=== PATIENT | male | born 1980 | race Caucasian/White ===

== ENCOUNTER 2024-02-21 19:18 | Emergency (ER) | payer OTHER, MEDICAID, SELFPAY ==
[2024-02-21 19:37] VITALS: BP 147/86; PULSE 67; RESP 17; TEMP 36.6; O2SAT 98; BMI 28.6
== END 2024-02-21 22:20 | disposition left against medical advice (07) ==
PROVIDERS: Emergency Provider Emergency Medicine; PCP Family Medicine
DX: S69.91XA Unspecified injury of right wrist, hand and finger(s), initial encounter (principal); X58.XXXA Exposure to other specified factors, initial encounter
CPT/HCPCS: 99281